=== PATIENT | female | born 1965 | race Two or more races ===

== ENCOUNTER → 2016-08-29 | Outpatient (CLI) | payer BC, OTHER ==
[~2016-08-29] MED LIST: CLON1TAB PO; CYCL5TAB PO; FEXO60TA25 PO; FLUT9.9S NS; IBUP200T43 PO; NITR100C63 PO; PROAIR RESPICL90 MCG IH; TOPI200T25 PO; VENL150C PO
[2016-08-29 13:20] LABS: BASO # 0.1 x10^3/uL (0.0-0.2); BASO % 1 % (0-3); EOS % 2 % (0-3); HEMATOCRIT 40.6 % (36.0-47.0); HEMOGLOBIN 13.2 g/dL (12.0-15.5); LYMPH # 1.8 x10^3/uL (1.0-4.8); LYMPH % 20 % (24-48); MEAN CORPUSCULAR HEMOGLOBIN 30 pg (25-35); MEAN CORPUSCULAR HGB CONC 33 g/dL (31-37); MEAN CORPUSCULAR VOLUME 92 fL (79-100); MONO % 6 % (0-9); NEUT % 71 % (31-73); PLATELET COUNT 314 x10^3/uL (140-400); RED BLOOD COUNT 4.43 x10^6/uL (3.50-5.40); WHITE BLOOD COUNT 8.8 x10^3/uL (4.0-11.0)
[2016-08-29 13:35] LABS: CALCIUM 9.5 mg/dL (8.5-10.1); CREATININE 0.6 mg/dL (0.6-1.0); GFR 106.3; POTASSIUM 4.1 mmol/L (3.5-5.1)
== END | disposition home or self-care (01) ==
LOC: SURGPAT 12:40
PROVIDERS: ATTEND Obstetrics & Gynecology
DX: Z01.812 Encounter for preprocedural laboratory examination (principal); D21.9 Benign neoplasm of connective and other soft tissue, unspecified
CPT/HCPCS: 36415; 80048; 85027

== ENCOUNTER 2016-09-10 05:43 | Observation (INO) | payer BC, OTHER ==
[~2016-09-10] VITALS: Ht 162.6 cm; Wt 91.6 kg
[2016-09-10] VITALS (13 sets, daily range): BP systolic 119–145; BP diastolic 61–75
[~2016-09-10 05:43] MED LIST changes: +CEFAZOLIN 1GM IVPB FOR OMNI 50 ML IV PRN
[2016-09-10 06:20] LABS: NEG OBC UR NEG; POS OBC UR POS
[2016-09-10] MEDS ORDERED: ONDANSETRON PF 4 MG/2 ML VIAL. IV PRN ×2 (07:00→10:00)
[2016-09-10] MEDS ORDERED: HYDROMORPHONE 2 MG/ML VIAL. IV PRN (07:00)
[2016-09-10] MEDS ORDERED: PROCHLORPERAZINE 10 MG/2 ML VIAL. IV PRN (07:00)
[2016-09-10] MEDS ORDERED: MORPHINE SULFATE 2 MG/ML DISP.SYRIN. IV PRN (07:00)
[2016-09-10] MEDS ORDERED: IV RINGERS,LACTATED 1000ML 1,000 ML IV SCH (07:00)
[2016-09-10] MEDS ORDERED: FENTANYL PF 100 MCG/2 ML VIAL. IV PRN ×2 (07:00)
[2016-09-10] MEDS ORDERED: LIDOCAINE 1% 1 ML SYRINGE. ID PRN (07:00)
[2016-09-10] MEDS ORDERED: LIDOCAINE 2% 100 MG/5 ML DISP.SYRIN. ONE (07:02)
[2016-09-10] MEDS ORDERED: MIDAZOLAM HCL 2 MG/2 ML VIAL. ONE (07:02)
[2016-09-10] MEDS ORDERED: PROPOFOL 20 ML IV ONE ×2 (07:02→09:19)
[2016-09-10] MEDS ORDERED: ONDANSETRON PF 4 MG/2 ML VIAL. ONE (07:02)
[2016-09-10] MEDS ORDERED: SEVOFLURANE > 120 MINUTES. IH ONE (07:02)
[2016-09-10] MEDS ORDERED: DEXAMETHASONE SOD PHOS 20 MG/5 ML VIAL. ONE (07:02)
[2016-09-10] MEDS ORDERED: FENTANYL PF 100 MCG/2 ML VIAL. ONE (07:03)
[2016-09-10] MEDS ORDERED: ROCURONIUM 50 MG/5 ML VIAL. ONE (07:03)
[2016-09-10] MEDS ORDERED: FAMOTIDINE 20 MG/2 ML VIAL ONE (07:05)
[2016-09-10] MEDS ORDERED: PHENYLEPHRINE in 0.9% NACL PF 1 MG/10 ML DISP.SYRIN. IV ONE (07:06)
[2016-09-10] MEDS ORDERED: ESTROGENS, CONJ VAGINAL CREAM 30GM TUBE. ONE (07:10)
[2016-09-10] MEDS ORDERED: BUPIVACAINE-EPI 0.25%-1:200000 50 ML VIAL. ONE (07:10)
[2016-09-10] MEDS ORDERED: METHYLENE BLUE 1% 1 ML VIAL. ONE (07:10)
[2016-09-10] MEDS ORDERED: MORPHINE SULFATE 10 MG/ML VIAL. ONE (08:16)
[2016-09-10] MEDS ORDERED: NEOSTIGMINE METHYLSULFATE 5 MG/5 ML SYRINGE. ONE (08:29)
[2016-09-10] MEDS ORDERED: GLYCOPYRROLATE 1 MG/5 ML VIAL. ONE (08:29)
--- NOTE | 2016-09-10 09:44 | PDOC ---
BRIEF OPERATIVE NOTE Date: Sep 10, 2016 Pre-Op Diagnosis pelvic pain and failed novasure ablation Post-Op Diagnosis same plus anterior abdominal wall hernia Procedure Performed lavh and bso with reduction and repair of ventral wall hernia Surgeon Enriqueta [employer] Cameron Anesthesiologist yes Anesthesia Type: General Blood Loss 50cc IV Fluid 1700cc Urine Output 300cc- clear Specimens Obtained uterus, tubes, ovaries Findings non-incarcerated ventral wall hernia Complications none PETRA MOLINA MD Sep 10, 2016 09:43
--- NOTE | 2016-09-10 09:44 | DISCH ---
DISCHARGE INSTRUCTIONS Condition on Discharge Condition on Discharge: Stable Activity After Discharge Activity Instructions for Disc: Activity as tolerated, Progressive ambulation Lifting Instructions after Dis: No heavy lifting, No pulling or pushing, Do not lift >10 pounds Exercise Instruction after Dis: Progress as tolerated Driving Instructions after Dis: Do not drive today, No driving for 2 weeks Weight Bearing Status after Di: Full weight bearing Diet after Discharge Diet after Discharge: Regular Wound Incision Care Wound/Incision Care: Ice to area for comfort, May get incision wet Contacting the DR. after DC Call your doctor for: If your condition worsens Follow-Up Follow up with: 1 week with PETRA Pierre MD Sep 10, 2016 09:44
[2016-09-10] MEDS ORDERED: DIPHENHYDRAMINE 50 MG/ML VIAL IV PRN (10:00)
[2016-09-10] MEDS ORDERED: DIPHENHYDRAMINE HCL 25 MG CAPSULE PO PRN (10:00)
[2016-09-10] MEDS ORDERED: ESTRADIOL WEEKLY 0.1 MG PATCH. TD ONE (10:00)
[2016-09-10] MEDS ORDERED: SIMETHICONE 80 MG TAB.CHEW PO PRN (10:00)
[2016-09-10] MEDS ORDERED: NALOXONE 0.4 MG/ML VIAL. IV PRN (10:00)
[2016-09-10] MEDS ORDERED: 0.9 % SODIUM CHLORIDE 10 ML DISP.SYRIN. IV PRN (10:00)
[2016-09-10] MEDS ORDERED: BISACODYL 10 MG SUPP.RECT PR PRN (10:00)
[2016-09-10] MEDS ORDERED: PROCHLORPERAZINE 25 MG SUPP.RECT. PR PRN (10:00)
[2016-09-10] MEDS ORDERED: CALCIUM CARBONATE 500 MG TAB.CHEW PO PRN (10:00)
[2016-09-10] MEDS ORDERED: ZOLPIDEM 5 MG TABLET. PO PRN (10:00)
[2016-09-10] MEDS ORDERED: MAG HYDROX/ALUMINUM HYDROX/SMC 30 ML ORAL.SUSP PO PRN (10:00)
[2016-09-10] MEDS ORDERED: HYDROMORPHONE 2 MG/ML VIAL. IM PRN (10:00)
[2016-09-10] MEDS ORDERED: KETOROLAC TROMETHAMINE 30 MG/ML SYRINGE. IV PRN (10:00)
[2016-09-10] MEDS ORDERED: LACTULOSE 20 GM/30 ML SOLUTION. PO PRN (10:00)
[2016-09-10] MEDS ORDERED: ALBUTEROL SULFATE 2.5 MG/3 ML NEBU. NEB PRN (11:45)
[2016-09-10] MEDS: HYDROMORPHONE 2 MG TABLET. PO PRN ×2 (15:35→20:28)
[2016-09-10] MEDS: IBUPROFEN 800 MG TABLET. PO PRN (18:48)
[2016-09-10] MEDS ORDERED: TOPIRAMATE 100 MG TABLET. PO SCH (21:00)
[2016-09-10] MEDS ORDERED: CYCLOBENZAPRINE 10 MG TABLET. PO SCH (21:00)
[2016-09-10] MEDS ORDERED: CLONAZEPAM 1 MG TABLET PO SCH (21:00)
[2016-09-10] MEDS ORDERED: CETIRIZINE HCL 10 MG TABLET PO SCH (21:00)
[2016-09-10] MEDS: VENLAFAXINE 50 MG TABLET. PO SCH (21:33)
[2016-09-11 06:11] VITALS: BP 113/69
[2016-09-11] MEDS: VENLAFAXINE 50 MG TABLET. PO SCH (08:57)
[2016-09-11] MEDS: IBUPROFEN 800 MG TABLET. PO PRN (08:57)
[2016-09-11] MEDS ORDERED: FLUTICASONE 50MCG/NASAL SPRAY 16GM BOTTLE. NS SCH (09:00)
--- NOTE | 2016-09-11 11:28 | PDOC ---
SURGICAL PROGRESS NOTE Subjective Doing well. Is ambulating and tolerating a regular diet. Minimal pain. Tolerating po pain meds. Ready to go home Vital Signs Vital Signs Date Time Temp Pulse Resp B/P Pulse Ox O2 Delivery O2 Flow Rate FiO2 09/11/16 06:11 98.0 85 18 113/69 98.0 09/10/16 23:29 95 Room Air 09/10/16 15:49 2.0 I&O Intake and Output 09/11/16 07:00 Intake Total 300 ml Output Total 300 ml Balance 0 ml Intake Oral 300 ml Output Urine Total 300 ml # Voids 4 PATIENT HAS A TSE: No General: Alert, Oriented X3, Cooperative, No acute distress HEENT: Mucous membr. moist/pink Lungs: Clear to auscultation, Normal air movement Heart: Regular rate, Normal S1, Normal S2, No murmurs Abdomen: Normal bowel sounds, Soft, No tenderness, No hepatosplenomegaly, No masses, Other (incisions c/d/i) Extremities: No clubbing, No cyanosis, No edema, Normal pulses, No tenderness/ swelling Skin: No rashes, No breakdown, No significant lesion Labs Laboratory Tests Test 09/10/16 06:00 09/10/16 14:55 Urine Test Negative (NEG) Hematocrit 37.8% (36.0-47.0) Laboratory Tests Test 09/10/16 14:55 Hematocrit 37.8% (36.0-47.0) I have reviewed the following labs, vitals Problem List POD # 1 from [facility] and O. Plan for discharge today. Problems Medical Problems: (1) Hernia of anterior abdominal wall Status: Acute (2) Pelvic pain Status: Acute Problems: PETRA MOLINA MD Sep 11, 2016 11:28
[2016-09-11] MEDS ORDERED: ACETAMINOPHEN 500 MG TABLET PO PRN (12:15)
[2016-09-11 13:10] VITALS: BP 129/64
--- NOTE | 2016-09-11 14:18 | OP ---
DATE OF SURGERY: PREOPERATIVE DIAGNOSES: Pelvic pain and failed NovaSure endometrial ablation. POSTOPERATIVE DIAGNOSES: Pelvic pain and failed NovaSure endometrial ablation and anterior abdominal wall hernia. PROCEDURE PERFORMED: LAVH and BSO with reduction and repair of ventral wall hernia. SURGEON: Enriqueta and Dr. Barnes. ANESTHESIA: General. COMPLICATIONS: None. ESTIMATED BLOOD LOSS: 50 mL. URINE OUTPUT: 300 mL of clear urine. FLUIDS: 1700 mL. SPECIMENS: Uterus, tubes, and ovaries. FINDINGS: Again, was a nonincarcerated ventral wall hernia with omentum in it. COMPLICATIONS: None. DESCRIPTION OF THE PROCEDURE: After informed consent was obtained, the patient was taken to the operating room and given a smooth induction of anesthesia without complications. Her abdomen, perineum, and vagina were prepped and draped in the usual sterile fashion. A Hartley catheter had been placed. The patient had received prophylactic antibiotics prior to incision. Her legs were placed in stirrups, and a bivalve speculum was placed in the vagina. The anterior lip of the cervix was grasped with a single tooth tenaculum, and a Valtchev was placed through the cervical os and attached to the tenaculum. The speculum was then removed. We did inject 10 mL of 0.25% Marcaine at 2, 4, 8, and 10 o'clock on the cervix and allowed this to set up for later. We then removed the speculum, and I changed gloves and went above. A 5-mm incision was made just above the umbilicus. I chose this location because I had pushed up on the uterine manipulator, and the uterus got a little bit enlarged to me, so I decided to go above ____ instead of below. This actually turned out to be a good decision as we would have been in the right middle of the ventral wall hernia if we had gone where she had her previous incision. The trocar was placed without any difficulty. We used the [place] technology to place the trocar without any injuries to any surrounding organs. Once the camera was placed, we noticed some omentum, what we thought was adherent to the anterior abdominal wall. The lateral giron were free. So I went ahead and put in two lateral ports under direct visualization with first transilluminating the anterior abdominal wall. The ports were placed, and we used the grasper. We actually used the LigaSure to start to release the omentum from the anterior abdominal wall. However, when Dr. Barnes started checking on the omentum, it started to slip out of the hernia, and we realized this was the hernia and not adhesion. Once the omentum was free and the patient was placed in Trendelenburg, we turned our attention to the hysterectomy. We then proceeded to use the LigaSure to cauterize across the round ligament on both sides. This ligament was transected, and a window was created in the medial leaf of the broad ligament. We then dissected the bladder flap anteriorly using a combination of blunt and sharp dissection with the LigaSure. We then elevated the right ovary to visualize the ureter below. We then cauterized across the infundibulopelvic ligament to free the ovary from the sidewall. Once this was completely free, we then cauterized down the branches of the uterine artery down the side of the uterus all the way down to the uterosacral ligaments. Same procedure was carried out on the other side. There was a little bit more scar tissue on the left side, and it was more difficult to see the ureter. Once the ovary was free, again we cauterized the branches of the uterine artery down the sides of the uterus down to the uterosacral ligaments. We then terminated the procedure above and went below. We placed a weighted speculum in the vagina, and the Valtchev was removed. The tenaculum was removed from the anterior lip of cervix and replaced by 2 Junaid thyroid clamps. A circumferential incision was then created around the cervix. The bladder was retracted superiorly using blunt dissection with a Ray-Victoria, and the posterior peritoneum was entered sharply. Once we entered the posterior peritoneum, the peritoneum was tagged to the posterior vaginal sidewalls and saved for later use. We then placed the Stanley speculum intraperitoneally. We then proceeded to clamp, cut, and ligate the cardinal uterosacral ligaments with 2 Zak transfixion sutures. These were then tagged to the lateral vaginal sidewalls and saved for later use. We then used the LigaSure to cauterize and cut the remaining pedicles to free the uterus. Once the uterus was free, it was removed from the field. The peritoneum was closed with a running pursestring suture of 2-0 Vicryl, and then the vagina was closed with running locking stitch of 2-0 Vicryl. At this point, good hemostasis was noted. We then went about to irrigate the pelvis. The pelvis was irrigated. Again, no bleeding was noted. We sprayed Tisseel on the raw surfaces in the pelvis, and no bleeding was noted from here. At this point, we decided to tuck away into anterior wall hernia, and we moved the camera to the right-sided port and then tried to use the PMI to tunnel through the umbilical incision to get to where the hernia was to place a stitch to close it. However, this was not very successful, and we ended up having to make a small 5-mm incision over the hernia itself, and then we were able to close it with the PMI using an interrupted stitch. Once this was closed, all the ports were visualized and noted to be hemostatic. We then removed all the ports under direct visualization, and the gas was allowed to escape. Once the gas was allowed to escape, we closed the ports with interrupted suture of 4-0 nylon and infiltrated them with anesthetic. At this point, the procedure was terminated. The patient tolerated the procedure well. There were no complications. PETRA MOLINA MD DR: SHARIFA/tello JOB#: [id number] / [id number]
--- NOTE | 2016-09-11 16:38 | PATHOLOGY ---
PATHOLOGY REPORT * * * * * * * * FINAL DIAGNOSIS: Uterus and bilateral fallopian tubes and ovaries, laparoscopic-assisted vaginal hysterectomy with bilateral salpingo-oophorectomy: - Adenomyosis, uterine corpus, focal (uterine weight 101 grams). - Mild chronic cervicitis with focal squamous metaplasia. - Nabothian cysts, cervix. - Status-post endometrial ablation with myometrial scarring. 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 - Right paratubal cysts. - Follicle cyst of left ovary. - Simple cyst of right ovary. COMMENT: There is no evidence of malignancy. (JPM:mgr; d/t: 09/11/16) REPORT ELECTRONICALLY SIGNED BY: Deshawn Chen M.D. DATE/TIME: 09/11/2016 16:37 * * * * * * * * GROSS PATHOLOGY: The specimen is received in formalin labeled "Willy Limon, uterus, cervix, bilateral fallopian tubes, bilateral ovaries". Received is a 101 g, an 8.6 x 6.5 x 4.3 cm uterus with attached cervix and attached adnexa, weighing 7 and 10 g, left and right, respectively. The uterine serosa is pink-dhillon, smooth and glistening in appearance. The 1.5 cm cervical os is surrounded by pink-dhillon, smooth ectocervical mucosa. The uterus is oriented using the peritoneal reflection and the anterior paracervical margin is inked black. The uterus is opened laterally to reveal a pink-dhillon, slightly corrugated endocervical canal measuring 2.5 cm in length. The endometrial cavity is linear measuring 3.2 cm in length by 0.4 cm in width, suggestive of previous ablation. The endometrium is pink-dhillon, slightly scarred, glistening in appearance and measures <0.1 cm in thickness. Serial sectioning reveals a dhillon-pink, trabeculated myometrium measuring up to 2.8 cm in thickness displaying a single possible intramural fibroid measuring 1.1 cm in maximum dimensions as well as possible adenomyosis. The left adnexa consists of a fimbriated fallopian tube measuring 3.0 cm in length by up to 0.5 cm in diameter attached to a 3.6 x 1.8 x 1.1 cm ovary. Sectioning through the fallopian tube reveals a pinpoint lumen and the fallopian tube appears otherwise grossly unremarkable. Sectioning through the ovary reveals a unilocular cystic structure measuring 1.5 cm that is devoid of content. The remaining cut surfaces display pale dhillon, normal ovarian stroma. The right adnexa consists of a fimbriated fallopian tube measuring 4.9 cm in length by up to 0.5 cm in diameter with multiple attached paratubal cysts measuring 0.8 and 2.1 cm, attached to a 3.5 x 2.0 x 1.1 cm ovary. Sectioning through the fallopian tube reveals a pinpoint lumen and appears otherwise grossly unremarkable Sectioning through the ovary reveals multiple cystic structures ranging in size from 0.4 to 0.6 cm. The remaining cut surfaces display pale dhillon, normal ovarian stroma. The specimen is submitted representatively as follows: A1 12:00 cervix A2 6:00 cervix A3 anterior endomyometrium A4 posterior endomyometrium A5 rental representative section of possible fibroid and adenomyosis A6 left adnexa A7 right adnexa. (CAA; 09/10/2016) INITIAL CPT CODE(S): A; 15763 Professional services performed [place] [facility] [place] [address] Technical services performed by [facility] at [address] [place] [address] [address] [address]. SPECIMEN(S) RECEIVED: A.Uterus, cervix, bilateral fallopian tubes, bilateral ovaries CLINICAL HISTORY: Pelvic pain, fibroids PATIENT: WILLY LIMON Fortino /AGE: 310/08/1955 (Age: 60) PATIENT #: [id number] ALT CASE #: SPECIMEN COLLECTION DATE: 09/10/2016 SPECIMEN RECEIVED DATE: 09/10/2016 [facility] - [address] [place] [address] - PHONE: [phone] * * * END OF REPORT * * *
== END 2016-09-11 13:17 | disposition home or self-care (01) ==
LOC: SURG 05:43 → EDUNIT# 07:30 → 3 NORTH 11:36
PROVIDERS: ADMIT Obstetrics & Gynecology; ATTEND Obstetrics & Gynecology
DX: R10.2 Pelvic and perineal pain (principal); K43.9 Ventral hernia without obstruction or gangrene
CPT/HCPCS: 36415; 49653; 58550; 81025; 85014; 86850; 86900; 86901; 88307; 96374; C1769; G0378; G0379; J0690; J1100; J1885; J2250; J2270; J2370; J2405; J2704; J2710; J3010; J3490; J7030; J7120; S0028; Q9968